=== PATIENT | male | born 1965 ===

== ENCOUNTER 2018-05-24 09:28 | Emergency (ER) | payer SELFPAY ==
--- NOTE | 2018-05-24 09:53 | ED PDOC ---
HPI: Chest Pain Time Seen by Provider: 05/24/18 09:39 History Per: Patient Onset/Duration Of Symptoms: Days (2) Current Symptoms Are (Timing): Intermittent Episodes Severity: Mild Quality: Pressure Associated Symptoms: Dyspnea Modifying Factors: None Exacerbating Factors: None Alleviating Factors: None Additional Complaint(s): Left sided chest pain x 2 days. Assoc with SOB. Non-radiating. Denies fever or cough. Past Medical History Vital Signs: Last Vital Signs Temp 98 F 05/24/18 09:54 Pulse 84 05/24/18 09:54 Resp 19 05/24/18 09:54 BP Pulse Ox 98 05/24/18 09:54 - Medical History PMH: No Chronic Diseases - Family History Family History: States: Unknown Family Hx - Home Medications Home Medications: Ambulatory Orders Medication Instructions Recorded Non-Formulary 1 ea .ROUTE Q6 #1 ea 05/24/18 - Allergies Allergies/Adverse Reactions: Allergies Allergy/AdvReac Type Severity Reaction Status Date / Time No Known Allergies Allergy Verified 05/24/18 09:54 Review of Systems ROS Statement: Except As Marked, All Systems Reviewed And Found Negative Cardiovascular: Positive for: Chest Pain Respiratory: Positive for: Shortness of Breath Physical Exam - Reviewed Nursing Documentation Reviewed: Yes Vital Signs Reviewed: Yes - Physical Exam Appears: Positive for: Non-toxic, No Acute Distress Head Exam: Positive for: ATRAUMATIC, NORMAL INSPECTION, NORMOCEPHALIC Skin: Positive for: Normal Color, Warm, DRY Eye Exam: Positive for: EOMI, Normal appearance, PERRL ENT: Positive for: Normal ENT Inspection Neck: Positive for: Normal, Painless ROM Cardiovascular/Chest: Positive for: Regular Rate, Rhythm Respiratory: Positive for: CNT, Normal Breath Sounds Gastrointestinal/Abdominal: Positive for: Normal Exam, Soft Back: Positive for: Normal Inspection Extremity: Positive for: Normal ROM Neurologic/Psych: Positive for: Alert, Oriented - Laboratory Results Result Diagrams: 05/24/18 09:50 05/24/18 09:50 Medical Decision Making Medical Decision Makin hr obs discussed with pt. Would prefer to have outpt stresstest and outpt f/ u. Aware of risks including [place], arrhythmia and Disposition - Clinical Impression Clinical Impression: Chest pain - Patient ED Disposition Is Patient to be Admitted: No Counseled Patient/Family Regarding: Studies Performed, Diagnosis, Need For Followup, Rx Given - Disposition [facility]errals: [facility] [[facility]] Disposition: Routine/Home Disposition Time: 12:40 Condition: FAIR Prescriptions: Non-Formulary 1 ea .ROUTE Q6 #1 ea Instructions: Chest Pain
[2018-05-24 09:58] VITALS: RESP 19; O2SAT 98
[2018-05-24 10:11] LABS: BASO # 0.1 K/uL (0.0-0.2); BASO % 0.8 % (0.0-2.0); EOS # 0.1 K/uL (0.0-0.7); EOS % 0.7 % (0.0-4.0); HEMOGLOBIN 14.7 g/dL (12.0-18.0); LYMPH % 36.3 % (20.0-40.0); MEAN CELL VOLUME 87.3 fl (80.0-94.0); MEAN CORPUSCULAR HEMOGLOBIN 30.4 pg (27.0-31.0); MEAN CORPUSCULAR HGB CONC 34.8 g/dL (33.0-37.0); MEAN PLATELET VOLUME 7.6 fl (7.2-11.7); MONO # 0.8 K/uL (0.0-0.8); MONO % 9.3 % (0.0-10.0); NEUT # 4.3 K/uL (1.8-7.0); NEUT % 52.9 % (50.0-75.0); NRBC % 0.2 % (0.0-0.0); RBC 4.84 Mil/uL (4.40-5.90); RED CELL DISTRIBUTION WIDTH 12.4 % (11.5-14.5); WHITE BLOOD COUNT 8.2 K/uL (4.8-10.8)
[2018-05-24 10:38] LABS: ALB/GLOB RATIO 1.3 (1.0-2.1); ALT/SGPT 43 U/L (21-72); AST/SGOT 66 U/L (17-59); BLOOD UREA NITROGEN 15 mg/dl (9-20); CALCIUM 9.2 mg/dL (8.4-10.2); GFR NON-AFRICAN AMERICAN > 60
--- NOTE | 2018-05-24 12:43 | RAD ---
Date of service: 05/24/2018 HISTORY: Chest pain COMPARISON: Chest radiographs 05/19/2011. TECHNIQUE: Chest PA and lateral FINDINGS: LUNGS: Poor inspiratory volume. Crowding of bronchovascular markings is identified bilaterally with limited bilateral basilar airspace disease difficult to exclude on a minimal early basis. Clinically correlate further. PLEURA: No significant pleural effusion identified. No pneumothorax apparent. CARDIOVASCULAR: Normal. OSSEOUS STRUCTURES: No significant abnormalities. VISUALIZED UPPER ABDOMEN: Normal. OTHER FINDINGS: None. IMPRESSION: Borderline bilateral basilar airspace disease versus crowded bronchovascular markings related to poor inspiratory volume. Clinically correlate further. No acute cardiovascular changes.
[2018-05-24 13:04] VITALS: BP 120/78; PULSE 78; TEMP 97
--- NOTE | 2018-05-24 19:12 | CARD ---
APPROVED REPORT Date of service: 05/24/2018 <Conclusion> Normal sinus rhythm Normal ECG
== END 2018-05-24 13:04 | disposition home or self-care (01) ==
LOC: H.ER 09:28
DX: R07.89 Other chest pain (principal)